=== PATIENT | female | born 1995 | race Caucasian/White ===

== ENCOUNTER 2022-03-09 12:42 | Emergency (ER) | payer OTHER ==
[2022-03-09 13:13] LABS: BASOPHILS % (AUTO) 0.5 %; EOSINOPHILS # (AUTO) 0.1 10^3/uL (0.0-0.7); EOSINOPHILS % (AUTO) 0.7 %; HCT - HEMATOCRIT 36.6 % (37.0-47.0); HGB - HEMOGLOBIN 12.6 g/dL (12.0-16.0); LYMPHOCYTES # (AUTO) 2.9 10^3/uL (1.5-3.5); LYMPHOCYTES % (AUTO) 38.5 %; MEAN CORPUSCULAR HEMOGLOBIN 30.5 pg (27.0-31.0); MEAN CORPUSCULAR HGB CONC 34.4 g/dL (32.0-36.0); MEAN CORPUSCULAR VOLUME 88.6 fL (81.0-99.0); MEAN PLATELET VOLUME 10.5 fL (7.9-10.8); MONOCYTES # (AUTO) 0.4 10^3/uL (0.0-1.0); MONOCYTES % (AUTO) 4.6 %; NEUTROPHILS # (AUTO) 4.2 10^3/uL (1.5-6.6); NEUTROPHILS % (AUTO) 55.3 %; PLT - PLATELET COUNT 252 10^3/uL (130-450); RED BLOOD COUNT 4.13 10^6/uL (4.20-5.40); RED CELL DISTRIBUTION WIDTH 12.8 % (12.0-15.0); WHITE BLOOD COUNT 7.5 x10^3/uL (4.8-10.8)
[2022-03-09 13:23] LABS: CALCIUM 9.3 mg/dL (8.5-10.3); CREATININE 0.7 mg/dL (0.4-1.0); POTASSIUM 4.2 mmol/L (3.5-5.0)
--- NOTE | 2022-03-09 13:41 | ED Physician Documentation ---
PD HPI FEMALE - Stated complaint Stated Complaint: FEMALE - Chief complaint Chief Complaint: Abd Pain - History obtained from History obtained from: Patient - Additional information Additional information: The patient comes to the emergency department chief complaint of vaginal bleeding. She states that she has an IUD but it is not the hormone eluding kind. She has had Irregular periods for a very long time, states that they usually last for 5 days and then come to an end. However, she states that she started her period on February 09, and had very heavy bleeding for some days, then alternated with brown discharge and bright red blood until around March 01. She states she had a few days of absolutely no bleeding, then began bleeding again about 5 days ago. She states that she has been intermittently passing clots has been using a new pad about every hour. She denies any hormonal control in addition to the IUD. No history of polycystic ovarian disease. She is not anticoagulated. She was seen over at the walk-in clinic prior to coming here and a test was negative. She is having moderate cramping. Review of Systems Ten Systems: 10 systems reviewed and negative Constitutional: reports: Reviewed and negative Eyes: reports: Reviewed and negative Ears: reports: Reviewed and negative Nose: reports: Reviewed and negative Throat: reports: Reviewed and negative Cardiac: reports: Reviewed and negative Respiratory: reports: Reviewed and negative GI: reports: Abdominal Pain (Cramping) : reports: Vaginal bleeding, Irregular menses. denies: Now EGA Skin: reports: Reviewed and negative Musculoskeletal: reports: Reviewed and negative Neurologic: reports: Reviewed and negative Psychiatric: reports: Reviewed and negative Endocrine: reports: Reviewed and negative Immunocompromised: reports: Reviewed and negative PD PAST MEDICAL HISTORY - Present Medications Home Medications: Ambulatory Orders Medication Instructions Recorded Confirmed Cetirizine [ZyrTEC] 10 mg PO DAILY 03/09/22 03/09/22 Norgestimate-Ethinyl Estradiol 1 tab PO 1-2XD #28 tablet 03/09/22 [Ortho Tri-Cyclen 28 Tablet] Sertraline HCl 100 mg PO DAILY 03/09/22 03/09/22 - Allergies Allergies/Adverse Reactions: Allergies Allergy/AdvReac Type Severity Reaction Status Date / Time copper Allergy Unknown Verified 03/09/22 12:55 Latex, Natural Rubber Allergy Unknown Verified 03/09/22 12:55 PD ED PE NORMAL - Vitals Vital signs reviewed: Yes - General General: Alert and oriented X 3, No acute distress, Well developed/nourished - HEENT HEENT: Atraumatic, PERRL, EOMI, Moist mucous membranes - Neck Neck: Supple, no meningeal sign - Cardiac Cardiac: RRR, No murmur - Respiratory Respiratory: No respiratory distress, Clear bilaterally - Abdomen Abdomen: Soft, Non distended, Other (Mild diffuse tenderness with moderate suprapubic tenderness, no rebound or guarding) - Female Female : Other (Normal female genitalia on pelvic exam. Moderate red blood per os. Normal cervical morphology with IUD string visualized protruding from os. No cervical motion tenderness. No mass. Mild bilateral adnexal tenderness.) - Derm Derm: Warm and dry - Extremities Extremities: No deformity - Neuro Neuro: Alert and oriented X 3 - Psych Psych: Normal mood, Normal affect Results - Vitals Vitals: Vital Signs - 24 hr 03/09/22 03/09/22 12:46 15:09 Temperature 36.6 C Heart Rate 63 70 Respiratory 16 18 Rate Blood Pressure 116/67 95/81 H O2 Saturation 100 99 Oxygen O2 Source Room air - Labs Labs: Laboratory Tests 03/09/22 03/09/22 03/09/22 13:09 13:09 13:09 WBC 7.5 RBC 4.13 L Hgb 12.6 Hct 36.6 L MCV 88.6 MCH 30.5 MCHC 34.4 RDW 12.8 Plt Count 252 MPV 10.5 Neut # (Auto) 4.2 Lymph # (Auto) 2.9 [place] # (Auto) 0.4 Eos # (Auto) 0.1 Baso # (Auto) 0.0 Absolute Nucleated RBC 0.00 Nucleated RBC % 0.0 Sodium 139 Potassium 4.2 Chloride 106 Carbon Dioxide 24 Anion Gap 9.0 BUN 10 Creatinine 0.7 Estimated GFR (MDRD) 101 Glucose 70 Calcium 9.3 HCG, Quant < 0.60 - Rads (name of study) Pelvic ultrasound Radiology: Final report received, EMP read indepedently, See rad report (Large right ovarian cyst; Bartholin gland cyst. No obvious Cause of bleeding.) PD MEDICAL DECISION MAKING - ED course Complexity details: reviewed results, re-evaluated patient, considered differential, d/w patient ED course: The patient was worked up with labs and ultrasound. Labs were unremarkable. Ultrasound showed of an ovarian cyst and Bartholin gland cyst, but no obvious evidence of a cause for the patient's dysfunctional uterine bleeding. I discussed with the patient that at this point, we will prescribe Ortho Tri- Cyclen for her for a single months worth of tablets. I have given her a regimen to take until the pills from the 1 month packet are gone. I have advised her strongly to follow-up with gynecology to further explore reasons for her dysfunctional uterine bleeding. We have discussed the usual indications for return. Departure - Departure Disposition: 01 Home, Self Care Clinical Impression: Dysfunctional uterine bleeding Condition: Stable Instructions: ED Bleed Irregular Vaginal Follow-Up: Chidi Conroy MD [Provider Admit Priv/Credential] - Prescriptions: Norgestimate-Ethinyl Estradiol [Ortho Tri-Cyclen 28 Tablet] 1 tab PO 1-2XD #28 tablet Comments: There are no concerning findings on your ultrasound, and no specific cause of your bleeding has been found. At this point in time, the best treatment is to take a temporary course of oral contraceptives to reset your hormones and bleeding. Although the prescription will say to take 1 pill every day, you should actually take 3 pills a day until the bleeding stops. After that you should take 2 pills a day or the next couple of days and if your bleeding does not restart, then just go to 1 pill a day until the course is complete. 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 Please call for the next available appointment. Discharge Date/Time: 03/09/22 15:10
--- NOTE | 2022-03-09 15:01 | Ultrasound Report ---
PROCEDURE: Pelvic w/Transvag+Doppler Comp INDICATIONS: Heavy vaginal bleeding TECHNIQUE: Real-time scanning was performed of the pelvic organs, with image documentation. Additional endovagi nal scanning was necessary due to incomplete visualization of the adnexal and endometrial structures by transabdominal scanning. Doppler interrogation was performed of the ovaries bilaterally. COMPARISON: None. FINDINGS: Uterus: Uterus is anteverted measuring 10.6 x 3.8 x 5.6 cm. Normal overall volume. Endometrium is 5 m m. IUD is in expected position. There are Bartholin cysts. Correlate with clinical exam if needed. Ovaries: Right ovary measures 5.6 x 3.1 x 4.4 cm, total volume is 39 cc. Left ovary measures 2.8 x 2 x 1.3 cm. Total volume is 4 cc. Color and spectral Doppler flow are documented. Right ovarian cyst measures 4.9 x 2.2 x 4.2 cm, probably with some daughter cysts at the periphery Other: No pathologic free fluid. IMPRESSION: Normal sonographic appearance of the uterus. Bartholin cysts are present, correlate with clinical exa m. IUD in appropriate position. Right ovarian cyst measures up to 4.9 cm, which does not require dedicated follow-up in a premenopaus al woman if asymptomatic. Normal color and spectral Doppler flow in the ovary. Reviewed by: Lukas Toney MD on 03/09/2022 2:59 PM PDT Approved by: Lukas Toney MD on 03/09/2022 2:59 PM PDT Station ID: [id number]
[2022-03-09 15:09] VITALS: BP 95/81
== END 2022-03-09 15:10 | disposition home or self-care (01) ==
LOC: ED 12:42
DX: N93.8 Other specified abnormal uterine and vaginal bleeding (principal); N83.201 Unspecified ovarian cyst, right side; N75.0 Cyst of Bartholin's gland; Z97.5 Presence of (intrauterine) contraceptive device
CPT/HCPCS: 36415; 80048; 84702; 85025; 93975; 99284